=== PATIENT | female | born 1990 | race Caucasian/White ===

== ENCOUNTER 2017-11-15 18:19 | Emergency (ER) | payer OTHER ==
[~2017-11-15] VITALS: Ht 172.7 cm; Wt 63.5 kg
--- NOTE | ~2017-11-15 | EKG ---
[place], [place] ELECTROCARDIOGRAM REPORT NAME: LATOSHA PINA UNIT #: [id number] ROOM: DOCTOR: LYLE MURPHY MD BIRTHDATE: [birth year] DOS: 11/15/2017 ELECTROCARDIOGRAM REPORT TIME: 1926 hours. RESULTS: 1. Normal sinus rhythm at 75 beats per minute. 2. The tracing is normal. 3. No previous tracing is available for comparison. LYLE MURPHY MD CM:EKGRPT:ELECTROCARDIOGRAM REPORT [id number] LYLE MURPHY MD
[~2017-11-15 18:19] MED LIST: AMOXIL500 MG PO; BACTRIM DS 8001 TA1 PO; BENADRYL ALLERG25 M5 PO; CEPHALEXIN500 M1 PO; CLARITIN10 MG PO; HYDROCODONE BIT1 T11 PO; IBU800 M1 PO; LIDEX 0.05% CRE15 GM T; MEDROL DOSEPAK4 MG PO; MOTRIN800 MG PO; NKHM PO; PERCOCET 325 MG1 TA2 PO; PNV-SELECT1 TAB PO; PREDNISONE10 MG PO; TRAMADOL HCL50 MG PO; TRANDATE100 M1 PO
[2017-11-15 19:23] LABS: BASO % 0.4 % (0.0-1.0); EOS # 0.2 10*3/uL (0.0-0.4); HEMATOCRIT 36.7 % (37.0-47.0); HEMOGLOBIN 12.3 g/dl (12.0-16.0); LYMPH # 2.1 10*3/uL (1.3-4.4); LYMPH % 26.2 % (27.0-41.0); MEAN CORPUSCULAR HGB 29.5 pg (27.0-31.0); MEAN CORPUSCULAR HGB CONC 33.5 g/dl (33.0-37.0); MEAN PLATELET VOLUME 8.9 fl (9.6-12.3); MONO # 0.5 10*3/uL (0.1-1.0); MONO % 5.9 % (3.0-9.0); NEUT # 5.2 10*3/uL (2.3-7.9); NEUT % 65.2 % (47.0-73.0); PLATELET COUNT AUTOMATED 184 10*3/uL (130-400); RED BLOOD COUNT 4.17 10*6/uL (4.10-5.10); RED CELL DISTRI WIDTH 12.9 % (0-14.5); WHITE BLOOD COUNT 7.9 10*3/uL (4.8-10.8)
[2017-11-15 19:32] LABS: ACT PARTIAL THROMBO TIME 23.9 SECONDS (20.8-31.5)
[2017-11-15 19:36] LABS: BUN 14 mg/dl (7-24); CHLORIDE 107 mmol/L (98-107); CREATININE 0.87 mg/dL (0.55-1.02); POTASSIUM 4.4 mmol/L (3.5-5.1); SODIUM 141 mmol/L (136-145)
[2017-11-15 19:45] LABS: TROPONIN I < 0.015 ng/ml (<0.045)
[2017-11-15 20:08] LABS: URINE AMPHETAMINES < 1000 (1000ng/ml); URINE BARBITURATES < 200 (200ng/ml); URINE BENZODIAZEPINES < 200 (200ng/ml); URINE CANNABINOIDS (THC) < 50 (50ng/ml); URINE COCAINE < 300 (300ng/ml); URINE METHADONE < 300 (300ng/ml); URINE OPIATES < 300 (300ng/ml)
[2017-11-15 20:15] LABS: URINE PHENCYCLIDINE < 25 (25ng/ml)
== END 2017-11-15 22:44 | disposition home or self-care (01) ==
LOC: ED 18:19
PROVIDERS: Emergency Medicine; Emergency Medicine Emergency Medical Services; Internal Medicine
DX: R20.2 Paresthesia of skin (principal); I10 Essential (primary) hypertension

== ENCOUNTER 2019-05-10 11:43 | Emergency (ER) | payer OTHER ==
[~2019-05-10] VITALS: Wt 68.0 kg
[2019-05-10] MEDS ORDERED: Tobrex Ophth S2.5 ML OPH (12:14)
== END 2019-05-10 12:19 | disposition home or self-care (01) ==
LOC: ED 11:43
DX: H10.9 Unspecified conjunctivitis (principal); Z79.899 Other long term (current) drug therapy; Z79.2 Long term (current) use of antibiotics